=== PATIENT | female | born 1975 | race Hispanic/Latino ===

== ENCOUNTER 2021-03-10 03:48 | Inpatient (IN) | payer SELFPAY ==
[2021-03-10] VITALS (10 sets, daily range): BP systolic 101–148; BP diastolic 49–77
[~2021-03-10] VITALS: Ht 152.4 cm; Wt 68.0 kg
[2021-03-10 04:28] LABS: APPEARANCE,URINE Clear (CLEAR); BILIRUBIN,URINE Negative (NEGATIVE); COLOR,URINE Yellow (YELLOW); GLUCOSE, URINE (UA) Negative (NEGATIVE); KETONES,URINE Trace mg/dL (NEGATIVE); LEUKOCYTE ESTERASE ,URINE Moderate (NEGATIVE); NITRATE,URINE Negative (NEGATIVE); OCCULT BLOOD,URINE Negative (NEGATIVE); PROTEIN,URINE Negative (NEGATIVE)
[2021-03-10 04:37] LABS: BACTERIA,URINE Rare /HPF (None Seen); MUCUS,URINE Rare LPF (None Seen); RBC,URINE None Seen /HPF (0-1); SQUAMOUS EPITHELIAL CELL,UR Few /HPF (0-2)
[2021-03-10] MEDS ORDERED: 0.9%NACL 1000ML 1,000 ML IV ONE ×2 (04:43→04:45)
[2021-03-10] MEDS ORDERED: KETOROLAC 30MG VIAL (30MG/ML) ONE (04:43)
[2021-03-10] MEDS ORDERED: KETOROLAC 30MG VIAL (30MG/ML) IV ONE (04:45)
[2021-03-10 04:50] LABS: BASOPHILS % (AUTO) 0.4 % (0.0-5.0); EOSINOPHILS % (AUTO) 1.2 % (0.0-8.0); HEMATOCRIT 39.1 % (36-48); MEAN CORPUSCULAR HEMOGLOBIN 29.6 pg (27.0-33.0); MEAN CORPUSCULAR VOLUME 92.4 fL (79-99); MONOCYTES % (AUTO) 8.9 % (3.0-13.0); NEUTROPHILS % (AUTO) 68.2 % (40.0-77.0); PLATELET COUNT (AUTO) 361 K/uL (130-400); RED BLOOD CELL COUNT(AUTO) 4.23 MIL/uL (4.00-5.50); RED CELL DISTRIBUTION WIDTH 13.8 % (11.0-15.5); WHITE BLOOD COUNT (AUTO) 11.4 K/uL (4.8-10.8)
[2021-03-10 05:01] LABS: CREATININE 0.6 mg/dL (0.5-1.5); POTASSIUM 4.6 mmol/L (3.5-5.1)
[2021-03-10 05:06] LABS: ALBUMIN 3.8 g/dL (3.5-5.0); BILIRUBIN,TOTAL 0.4 mg/dL (0.2-1.0); TOTAL PROTEIN, SERUM 7.6 g/dL (6.0-8.3)
[2021-03-10] MEDS: LACTATED RINGERS 1000ML 1,000 ML IV SCH ×3 (10:15→21:49)
[2021-03-10] MEDS ORDERED: 0.9%NACL 50ML IV SCH (10:15)
[2021-03-10] MEDS ORDERED: ONDANSETRON 4MG INJ IVP PRN (10:15)
[2021-03-10] MEDS ORDERED: PIP/TAZ ZOSYN 3.375G 3.375 GM VIAL IVPB SCH (10:15)
[2021-03-10] MEDS ORDERED: MORPHINE 2 MG SYG IVP PRN (10:15)
[2021-03-10] MEDS ORDERED: CIPR500S5 PO (10:44)
[2021-03-10] MEDS ORDERED: OMEP20CA12 PO (10:45)
[2021-03-10 10:46] LABS: HEMOGLOBIN A1C 5.8 % (4.0-6.0)
[2021-03-10] MEDS ORDERED: VIT D3 PO (10:47)
[2021-03-10] MEDS ORDERED: 0.9%NACL 50ML 50 ML IV ONE ×2 (11:15→18:41)
[2021-03-10] MEDS: KETOROLAC 15MG/ML VIAL (15MG/ML) IV PRN ×2 (11:24→20:36)
[2021-03-10] MEDS: ZOSYN 3.375GM+NS 50ML 50 ML IV SCH ×2 (11:24→18:45)
[2021-03-10 14:16] LABS: AMPHET/METH SCREEN,URINE NEGATIVE (NEGATIVE); BARBITURATE SCREEN, URINE NEGATIVE (NEGATIVE); BENZODIAZEPINES SCREEN,URINE NEGATIVE (NEGATIVE); CANNABINOID SCREEN,URINE NEGATIVE (NEGATIVE); COCAINE SCREEN,URINE NEGATIVE (NEGATIVE); OPIATE SCREEN,URINE NEGATIVE (NEGATIVE); PHENCYCLIDINE SCREEN,URINE NEGATIVE (NEGATIVE)
[2021-03-11] VITALS (8 sets, daily range): BP systolic 105–142; BP diastolic 53–74
[2021-03-11] MEDS: LACTATED RINGERS 1000ML 1,000 ML IV SCH ×4 (01:09→22:11)
[2021-03-11] MEDS: ZOSYN 3.375GM+NS 50ML 50 ML IV SCH ×3 (02:50→18:28)
[2021-03-11] MEDS: KETOROLAC 15MG/ML VIAL (15MG/ML) IV PRN ×3 (04:37→22:21)
[2021-03-11 08:41] LABS: HEMATOCRIT 32.4 % (36-48); MEAN CORPUSCULAR HEMOGLOBIN 29.1 pg (27.0-33.0); MEAN CORPUSCULAR HGB CONC 31.8 g/dL (32.0-36.0); MEAN CORPUSCULAR VOLUME 91.5 fL (79-99); RED BLOOD CELL COUNT(AUTO) 3.54 MIL/uL (4.00-5.50); RED CELL DISTRIBUTION WIDTH 13.7 % (11.0-15.5); WHITE BLOOD COUNT (AUTO) 6.7 K/uL (4.8-10.8)
[2021-03-11 08:57] LABS: ALBUMIN 2.8 g/dL (3.5-5.0); BILIRUBIN,TOTAL 0.2 mg/dL (0.2-1.0); CREATININE 0.6 mg/dL (0.5-1.5); POTASSIUM 3.6 mmol/L (3.5-5.1); TOTAL PROTEIN, SERUM 5.7 g/dL (6.0-8.3)
[2021-03-11] MEDS ORDERED: DEXTROSE 50%-WATER 50 ML DISP.SYRIN IV PRN (13:00)
[2021-03-11] MEDS ORDERED: GLUCAGON 1MG KIT 1 MG ML IM PRN (13:00)
[2021-03-11] MEDS: DEXTROSE 5%-WATER 1,000 ML IV SCH (13:04)
[2021-03-12] MEDS ORDERED: DOCUSATE SODIUM 100 MG CAP PO ONE (00:11)
[2021-03-12] MEDS: ZOSYN 3.375GM+NS 50ML 50 ML IV SCH ×3 (03:00→21:07)
[2021-03-12 04:59] LABS: HEPATITIS A ANTIBODY IGM Negative (Negative); HEPATITIS B CORE IGM Negative (Negative); HEPATITIS Bs ANTIGEN SCREEN P Negative (Negative)
[2021-03-12 06:36] LABS: ALBUMIN 2.8 g/dL (3.5-5.0); BILIRUBIN,TOTAL 0.2 mg/dL (0.2-1.0); CREATININE 0.6 mg/dL (0.5-1.5); POTASSIUM 3.7 mmol/L (3.5-5.1); TOTAL PROTEIN, SERUM 5.7 g/dL (6.0-8.3)
[2021-03-12 06:44] LABS: BASOPHILS % (AUTO) 0.7 % (0.0-5.0); EOSINOPHILS % (AUTO) 3.4 % (0.0-8.0); MEAN CORPUSCULAR HEMOGLOBIN 29.3 pg (27.0-33.0); MEAN CORPUSCULAR HGB CONC 31.9 g/dL (32.0-36.0); MONOCYTES % (AUTO) 8.5 % (3.0-13.0); NEUTROPHILS % (AUTO) 45.3 % (40.0-77.0); PLATELET COUNT (AUTO) 296 K/uL (130-400); RED BLOOD CELL COUNT(AUTO) 3.48 MIL/uL (4.00-5.50); RED CELL DISTRIBUTION WIDTH 13.7 % (11.0-15.5)
[2021-03-12 07:30] VITALS: BP 140/72
[2021-03-12 11:00] VITALS: BP 148/88
[2021-03-12 16:00] VITALS: BP 136/59
[2021-03-12 20:20] VITALS: BP 143/75
[2021-03-12] MEDS: KETOROLAC 15MG/ML VIAL (15MG/ML) IV PRN (21:15)
[2021-03-12] MEDS: DOCUSATE SODIUM 100 MG CAP PO PRN (21:15)
[2021-03-13] VITALS (7 sets, daily range): BP systolic 124–160; BP diastolic 64–85
[2021-03-13] MEDS: DEXTROSE 5%-WATER 1,000 ML IV SCH ×3 (02:02→22:54)
[2021-03-13] MEDS: ZOSYN 3.375GM+NS 50ML 50 ML IV SCH (03:18)
[2021-03-13 05:47] LABS: BASOPHILS % (AUTO) 0.5 % (0.0-5.0); EOSINOPHILS % (AUTO) 2.6 % (0.0-8.0); HEMATOCRIT 32.2 % (36-48); MEAN CORPUSCULAR HEMOGLOBIN 28.6 pg (27.0-33.0); MEAN CORPUSCULAR VOLUME 89.4 fL (79-99); MONOCYTES % (AUTO) 7.6 % (3.0-13.0); PLATELET COUNT (AUTO) 299 K/uL (130-400); RED CELL DISTRIBUTION WIDTH 13.4 % (11.0-15.5); WHITE BLOOD COUNT (AUTO) 7.6 K/uL (4.8-10.8)
[2021-03-13 06:21] LABS: ALBUMIN 2.9 g/dL (3.5-5.0); BILIRUBIN,TOTAL 0.2 mg/dL (0.2-1.0); CREATININE 0.6 mg/dL (0.5-1.5); TOTAL PROTEIN, SERUM 5.8 g/dL (6.0-8.3)
[2021-03-13] MEDS ORDERED: MAGNESIUM 2GM PREMIX 50ML 50 ML IV PRN ×2 (07:30→18:30)
[2021-03-13] MEDS ORDERED: POTASSIUM CHLORIDE 20MEQ/100ML 100 ML IV PRN ×2 (07:30)
[2021-03-13] MEDS ORDERED: POTASSIUM CHLORIDE 10% ELIXIR 20 MEQ/15 ML UDCUP PO PRN (07:30)
[2021-03-13] MEDS: MEROPENEM 1 GM VIAL IVP SCH ×3 (07:57→22:54)
[2021-03-13] MEDS ORDERED: LIDOCAINE HCL-MPF 1% 2ML VIAL IV PRN (09:00)
[2021-03-13] MEDS: KETOROLAC 15MG/ML VIAL (15MG/ML) IV PRN ×2 (16:17→16:36)
[2021-03-13] MEDS: KCL 20 MEQ ERTAB PO PRN (16:37)
[2021-03-14 04:50] VITALS: BP 142/74
[2021-03-14 05:18] LABS: BASOPHILS % (AUTO) 0.5 % (0.0-5.0); EOSINOPHILS % (AUTO) 3.5 % (0.0-8.0); HEMATOCRIT 34.5 % (36-48); MEAN CORPUSCULAR HEMOGLOBIN 29.6 pg (27.0-33.0); MEAN CORPUSCULAR HGB CONC 32.2 g/dL (32.0-36.0); MONOCYTES % (AUTO) 9.3 % (3.0-13.0); NEUTROPHILS % (AUTO) 52.6 % (40.0-77.0); PLATELET COUNT (AUTO) 305 K/uL (130-400); RED BLOOD CELL COUNT(AUTO) 3.75 MIL/uL (4.00-5.50); RED CELL DISTRIBUTION WIDTH 13.7 % (11.0-15.5); WHITE BLOOD COUNT (AUTO) 7.4 K/uL (4.8-10.8)
[2021-03-14 05:49] LABS: ALBUMIN 3.2 g/dL (3.5-5.0); CREATININE 0.6 mg/dL (0.5-1.5); MAGNESIUM 2.2 mg/dL (1.80-2.40); POTASSIUM 3.5 mmol/L (3.5-5.1)
[2021-03-14 06:01] LABS: BILIRUBIN,TOTAL 0.2 mg/dL (0.2-1.0); TOTAL PROTEIN, SERUM 6.4 g/dL (6.0-8.3)
[2021-03-14] MEDS: MEROPENEM 1 GM VIAL IVP SCH ×3 (06:44→22:59)
[2021-03-14] MEDS: DEXTROSE 5%-WATER 1,000 ML IV SCH ×3 (06:54→23:05)
[2021-03-14 07:30] VITALS: BP 136/70
[2021-03-14 11:00] VITALS: BP 140/71
[2021-03-14] MEDS: KCL 20 MEQ ERTAB PO PRN (11:51)
[2021-03-14] MEDS ORDERED: ACETAMINOPHEN 325 MG TAB PO PRN (14:45)
[2021-03-14 15:30] VITALS: BP 136/74
[2021-03-14 20:22] VITALS: BP 131/75
[2021-03-14] MEDS: DOCUSATE SODIUM 100 MG CAP PO PRN (22:59)
[2021-03-14 23:27] VITALS: BP 122/74
[2021-03-15 04:00] VITALS: BP 119/63
[2021-03-15 07:30] VITALS: BP 116/66
[2021-03-15] MEDS: MEROPENEM 1 GM VIAL IVP SCH ×2 (09:17→16:43)
[2021-03-15 11:00] VITALS: BP 119/68
[2021-03-15 16:00] VITALS: BP 122/64
[2021-03-15 19:50] VITALS: BP 91/42
[2021-03-16] MEDS: MEROPENEM 1 GM VIAL IVP SCH ×3 (00:13→18:39)
[2021-03-16 00:16] VITALS: BP 139/74
[2021-03-16 03:58] VITALS: BP 108/51
[2021-03-16 04:17] LABS: BASOPHILS % (AUTO) 0.6 % (0.0-5.0); EOSINOPHILS % (AUTO) 3.8 % (0.0-8.0); HEMATOCRIT 35.7 % (36-48); LYMPHOCYTES % (AUTO) 44.7 % (21.0-51.0); MEAN CORPUSCULAR HEMOGLOBIN 29.7 pg (27.0-33.0); MEAN CORPUSCULAR HGB CONC 32.5 g/dL (32.0-36.0); MEAN CORPUSCULAR VOLUME 91.3 fL (79-99); NEUTROPHILS % (AUTO) 42.7 % (40.0-77.0); PLATELET COUNT (AUTO) 319 K/uL (130-400); RED BLOOD CELL COUNT(AUTO) 3.91 MIL/uL (4.00-5.50); RED CELL DISTRIBUTION WIDTH 13.8 % (11.0-15.5); WHITE BLOOD COUNT (AUTO) 8.1 K/uL (4.8-10.8)
[2021-03-16 04:34] LABS: ALBUMIN 3.2 g/dL (3.5-5.0); BILIRUBIN,TOTAL 0.2 mg/dL (0.2-1.0); CREATININE 0.6 mg/dL (0.5-1.5); POTASSIUM 3.8 mmol/L (3.5-5.1); TOTAL PROTEIN, SERUM 6.4 g/dL (6.0-8.3)
[2021-03-16 08:00] VITALS: BP 124/60
[2021-03-16 12:00] VITALS: BP 131/56
[2021-03-16 16:00] VITALS: BP 115/62
[2021-03-16 19:50] VITALS: BP 105/48
[2021-03-17] MEDS: MEROPENEM 1 GM VIAL IVP SCH ×3 (00:05→21:35)
[2021-03-17 00:18] VITALS: BP 105/47
[2021-03-17 03:50] VITALS: BP 104/54
[2021-03-17 06:04] LABS: BASOPHILS % (AUTO) 0.6 % (0.0-5.0); EOSINOPHILS % (AUTO) 3.3 % (0.0-8.0); HEMATOCRIT 36.9 % (36-48); LYMPHOCYTES % (AUTO) 37.1 % (21.0-51.0); MEAN CORPUSCULAR HEMOGLOBIN 29.2 pg (27.0-33.0); MEAN CORPUSCULAR HGB CONC 32.2 g/dL (32.0-36.0); MEAN CORPUSCULAR VOLUME 90.4 fL (79-99); NEUTROPHILS % (AUTO) 50.8 % (40.0-77.0); PLATELET COUNT (AUTO) 336 K/uL (130-400); RED BLOOD CELL COUNT(AUTO) 4.08 MIL/uL (4.00-5.50); RED CELL DISTRIBUTION WIDTH 13.6 % (11.0-15.5); WHITE BLOOD COUNT (AUTO) 8.2 K/uL (4.8-10.8)
[2021-03-17 06:29] LABS: ALBUMIN 3.4 g/dL (3.5-5.0); BILIRUBIN,TOTAL 0.1 mg/dL (0.2-1.0); CREATININE 0.7 mg/dL (0.5-1.5); POTASSIUM 4.2 mmol/L (3.5-5.1); TOTAL PROTEIN, SERUM 6.7 g/dL (6.0-8.3)
[2021-03-17 08:00] VITALS: BP 103/42
[2021-03-17] MEDS: DOCUSATE SODIUM 100 MG CAP PO PRN ×2 (09:39→21:48)
[2021-03-17 12:00] VITALS: BP 100/48
[2021-03-17 17:17] VITALS: BP 104/59
[2021-03-17 19:55] VITALS: BP 110/57
[2021-03-18] VITALS (7 sets, daily range): BP systolic 97–119; BP diastolic 43–67
[2021-03-18 04:25] LABS: BASOPHILS % (AUTO) 0.5 % (0.0-5.0); EOSINOPHILS % (AUTO) 3.2 % (0.0-8.0); HEMATOCRIT 37.7 % (36-48); LYMPHOCYTES % (AUTO) 41.3 % (21.0-51.0); MEAN CORPUSCULAR HEMOGLOBIN 29.4 pg (27.0-33.0); MEAN CORPUSCULAR HGB CONC 31.8 g/dL (32.0-36.0); MEAN CORPUSCULAR VOLUME 92.4 fL (79-99); MONOCYTES % (AUTO) 7.8 % (3.0-13.0); NEUTROPHILS % (AUTO) 46.9 % (40.0-77.0); PLATELET COUNT (AUTO) 333 K/uL (130-400); RED BLOOD CELL COUNT(AUTO) 4.08 MIL/uL (4.00-5.50); RED CELL DISTRIBUTION WIDTH 13.6 % (11.0-15.5); WHITE BLOOD COUNT (AUTO) 7.6 K/uL (4.8-10.8)
[2021-03-18 04:46] LABS: ALBUMIN 3.4 g/dL (3.5-5.0); BILIRUBIN,TOTAL 0.2 mg/dL (0.2-1.0); CREATININE 0.6 mg/dL (0.5-1.5); POTASSIUM 4.2 mmol/L (3.5-5.1); TOTAL PROTEIN, SERUM 6.6 g/dL (6.0-8.3)
[2021-03-18] MEDS: MEROPENEM 1 GM VIAL IVP SCH ×3 (06:54→23:20)
[2021-03-19 04:00] VITALS: BP 105/58
[2021-03-19 04:40] LABS: BASOPHILS % (AUTO) 0.5 % (0.0-5.0); EOSINOPHILS % (AUTO) 3.2 % (0.0-8.0); HEMATOCRIT 37.9 % (36-48); LYMPHOCYTES % (AUTO) 45.6 % (21.0-51.0); MEAN CORPUSCULAR HEMOGLOBIN 28.6 pg (27.0-33.0); MEAN CORPUSCULAR HGB CONC 31.4 g/dL (32.0-36.0); MEAN CORPUSCULAR VOLUME 91.1 fL (79-99); MONOCYTES % (AUTO) 8.2 % (3.0-13.0); NEUTROPHILS % (AUTO) 42.2 % (40.0-77.0); PLATELET COUNT (AUTO) 332 K/uL (130-400); RED BLOOD CELL COUNT(AUTO) 4.16 MIL/uL (4.00-5.50); RED CELL DISTRIBUTION WIDTH 13.6 % (11.0-15.5); WHITE BLOOD COUNT (AUTO) 7.6 K/uL (4.8-10.8)
[2021-03-19 05:01] LABS: ALBUMIN 3.4 g/dL (3.5-5.0); BILIRUBIN,TOTAL 0.2 mg/dL (0.2-1.0); CREATININE 0.6 mg/dL (0.5-1.5); POTASSIUM 4.1 mmol/L (3.5-5.1); TOTAL PROTEIN, SERUM 6.7 g/dL (6.0-8.3)
[2021-03-19] MEDS: MEROPENEM 1 GM VIAL IVP SCH ×3 (06:41→23:08)
[2021-03-19 07:30] VITALS: BP 100/61
[2021-03-19 11:00] VITALS: BP 107/57
[2021-03-19 16:00] VITALS: BP 103/54
[2021-03-19] MEDS ORDERED: HYDROMORPHONE 1 MG INJ IVP ONE (18:00)
[2021-03-19 20:00] VITALS: BP 102/57
== END 2021-03-20 00:02 | disposition home or self-care (01) | DRG 439 ==
LOC: EDH 03:48 → EDHIP 03:49 → 3DH 03-11 02:40
PROVIDERS: ADMIT Internal Medicine; ATTEND Internal Medicine
DX: K85.10 Biliary acute pancreatitis without necrosis or infection (principal); N39.0 Urinary tract infection, site not specified; E87.0 Hyperosmolality and hypernatremia; Z16.12 Extended spectrum beta lactamase (ESBL) resistance; Z16.24 Resistance to multiple antibiotics; K75.9 Inflammatory liver disease, unspecified; E11.9 Type 2 diabetes mellitus without complications; K29.70 Gastritis, unspecified, without bleeding; E66.09 Other obesity due to excess calories; Z68.30 Body mass index [BMI] 30.0-30.9, adult; R00.1 Bradycardia, unspecified; B96.20 Unspecified Escherichia coli [E. coli] as the cause of diseases classified elsewhere; E83.42 Hypomagnesemia; E87.6 Hypokalemia; E66.01 Morbid (severe) obesity due to excess calories; K21.9 Gastro-esophageal reflux disease without esophagitis; K80.20 Calculus of gallbladder without cholecystitis without obstruction; Z98.84 Bariatric surgery status; Z90.710 Acquired absence of both cervix and uterus
CPT/HCPCS: 36415; 74183; 76705; 78227; 80053; 80061; 80074; 80305; 81001; 82948; 83036; 83690; 83735; 84145; 84443; 84484; 85025; 85027; 87077; 87088; 87186; 93005; A9537; G0378; J1885; J2185; J2543; J3475; J3480; J7030; J7070; J7120